=== PATIENT | male | born 1930 | race Caucasian/White ===

== ENCOUNTER 2016-09-05 07:06 | Emergency (ER) | payer MEDICARE, OTHER ==
[2016-09-05] MEDS ORDERED: SODIUM CHLORIDE 0.9% 1,000 ML ONE (07:43)
[2016-09-05] MEDS ORDERED: CEFTRIAXONE 1 GM VIAL ONE (08:37)
[2016-09-05] MEDS ORDERED: SODIUM CHLORIDE 0.9% 100 ML IV ONE (08:37)
== END 2016-09-05 10:35 | disposition home or self-care (01) ==
LOC: ER 07:06
DX: N30.00 Acute cystitis without hematuria (principal); Z79.899 Other long term (current) drug therapy; Z87.891 Personal history of nicotine dependence
CPT/HCPCS: 36415; 74022; 74176; 80053; 81001; 82553; 82947; 83605; 83690; 84484; 85025; 87040; 87077; 87088; 87186; 93005; 96361; 96365; 99285; J0696

== ENCOUNTER 2016-09-06 02:09 | Emergency (ER) | payer MEDICARE, OTHER ==
[2016-09-06] MEDS ORDERED: CEFTRIAXONE 1 GM VIAL ONE (04:09)
[2016-09-06] MEDS ORDERED: SODIUM CHLORIDE 0.9% 100 ML IV ONE (04:09)
== END 2016-09-06 05:58 | disposition home or self-care (01) ==
LOC: ER 02:09
DX: S60.511A Abrasion of right hand, initial encounter (principal); S80.211A Abrasion, right knee, initial encounter; S50.311A Abrasion of right elbow, initial encounter; W17.89XA Other fall from one level to another, initial encounter; Y93.89 Activity, other specified; Y92.89 Other specified places as the place of occurrence of the external cause; N30.00 Acute cystitis without hematuria; Z79.82 Long term (current) use of aspirin; Z79.899 Other long term (current) drug therapy
CPT/HCPCS: 36415; 70450; 80053; 81001; 82553; 84484; 85025; 85610; 85730; 87088; 93005; 96365; 99284; J0696